=== PATIENT | female | born 1970 | race Caucasian/White ===

== ENCOUNTER 2021-03-02 19:56 | Inpatient (IN) | payer BC, OTHER ==
[2021-03-02 23:46] LABS: BASO % 2.7 % (0-2.0); EOS % 11.3 % (0-4.5); HEMATOCRIT 34.5 % (32.4-45.2); HEMOGLOBIN 11.5 GM/dL (10.7-15.3); LYMPH % 37.3 % (8-40); MCH 27.6 pg (25.7-33.7); MCHC 33.2 g/dl (32.0-36.0); MEAN CELL VOLUME 83.1 fl (80-96); MEAN PLT VOLUME 7.3 fl (7.5-11.1); MONO % 6.7 % (3.8-10.2); PLATELET COUNT 321 10^3/uL (134-434); RBC 4.15 M/mm3 (3.60-5.2); RDW 15.5 % (11.6-15.6); WHITE BLOOD COUNT 7.2 K/mm3 (4.0-10.0)
[2021-03-03 00:01] LABS: PROTHROMBIN TIME (PATIENT) 11.7 SEC (9.7-13.0)
[2021-03-03 00:03] LABS: ACTIVATED PTT 30.3 SECONDS (25.2-36.5)
[2021-03-03 00:12] LABS: CHLORIDE 110 mmol/L (98-107); SODIUM 142 mmol/L (136-145)
[2021-03-03] MEDS ORDERED: morphine CARPU-JECT 4 MG/1 ML DISP.SYRIN IVPUSH ONE ×2 (00:12→04:12)
[2021-03-03] MEDS ORDERED: ONDANSETRON 4 MG/2 ML VIAL IVPUSH ONE (00:12)
[2021-03-03 00:16] LABS: ALBUMIN 3.1 g/dl (3.4-5.0); ANION GAP 6 MMOL/L (8-16); BLOOD UREA NITROGEN 19.2 mg/dL (7-18); CALCIUM 8.4 mg/dL (8.5-10.1); CO2 26 mmol/L (21-32); GLUCOSE,RANDOM 88 mg/dL (74-106)
[2021-03-03 00:19] LABS: CREATININE 1.1 mg/dL (0.55-1.3); SGOT/AST 16 U/L (15-37); SGPT/ALT 22 U/L (13-61)
[2021-03-03 00:20] LABS: BILIRUBIN,TOTAL 0.2 mg/dL (0.2-1)
[2021-03-03 00:21] LABS: TOT PROT 6.5 g/dl (6.4-8.2)
[2021-03-03 00:22] LABS: ALK PHOS 113 U/L (45-117)
[2021-03-03] MEDS ORDERED: SODIUM CHLORIDE 1,000 ML IV STA (00:25)
[2021-03-03] MEDS ORDERED: morphine SULFATE 4 MG/ML VIAL ONE ×2 (01:05→05:27)
[2021-03-03] MEDS ORDERED: ONDANSETRON 4 MG/2 ML VIAL ONE ×2 (01:06→14:37)
[2021-03-03 02:57] LABS: EPI CELLS 8 /uL (0-25.1); HYALINE CASTS 11 /uL (0-3.1); PH,URINE 5.5 (5.0-8.0); URINE APPEARANCE TURBID; URINE BILIRUBIN 1+ (NEGATIVE); URINE COLOR RED; URINE GLUCOSE (UA) NEGATIVE (NEGATIVE); URINE KETONE NEGATIVE (NEGATIVE); URINE LEUK ESTERASE 2+ (NEGATIVE); URINE NITRITE POSITIVE (NEGATIVE); URINE PROTEIN 2+ (NEGATIVE); URINE UROBILINOGEN 0.2 mg/dL (0.2-1.0); URINE WBC 779 /uL (0-25.8)
[2021-03-03] MEDS ORDERED: IMIPENEM/CILASTATIN SODIUM 500 MG in SODIUM CHLORIDE 100 ML IVPB ONE (03:08)
[2021-03-03 03:47] LABS: URINE RBC 45132.6 /uL (0-23.9)
[2021-03-03] MEDS ORDERED: ACETAMINOPHEN 325 MG TABLET (FP) PO PRN (07:36)
[2021-03-03] MEDS: SODIUM CHLORIDE 1,000 ML IV SCH (08:00)
[2021-03-03] MEDS ORDERED: IMIPENEM/CILASTATIN SODIUM 500 MG in SODIUM CHLORIDE 100 ML IVPB SCH (09:00)
[2021-03-03] MEDS ORDERED: ACETAMINOPHEN 325 MG TABLET (FP) ONE (09:52)
[2021-03-03] MEDS: ONDANSETRON 4 MG/2 ML VIAL IVPUSH PRN ×2 (14:55→22:57)
[2021-03-03] MEDS ORDERED: DEXTROSE 5%-WATER 100 ML IVPB ONE (17:56)
[2021-03-03] MEDS ORDERED: MEROPENEM 1 GM VIAL (RESTRICTED TO ID) IVPB ONE (17:56)
[2021-03-03] MEDS: MEROPENEM 1 GM in DEXTROSE 5%-WATER 100 ML IVPB SCH (18:00)
[2021-03-03 18:57] VITALS: BMI 29.0
[2021-03-04] MEDS ORDERED: DEXTROSE 5%-WATER 100 ML IVPB ONE ×4 (02:36→18:10)
[2021-03-04] MEDS ORDERED: MEROPENEM 1 GM VIAL (RESTRICTED TO ID) IVPB ONE ×4 (02:36→18:10)
[2021-03-04] MEDS: MEROPENEM 1 GM in DEXTROSE 5%-WATER 100 ML IVPB SCH ×3 (02:43→18:15)
[2021-03-04] MEDS ORDERED: ACETAMINOPHEN 1000 MG/100 ML BAG IVPB PRN ×2 (05:28→14:33)
[2021-03-04] MEDS: SODIUM CHLORIDE 1,000 ML IV SCH ×2 (05:38→19:50)
[2021-03-04] MEDS: ONDANSETRON 4 MG/2 ML VIAL IVPUSH PRN ×3 (05:38→19:45)
[2021-03-04 09:49] LABS: BASO % 0.7 % (0-2.0); EOS % 9.2 % (0-4.5); HEMATOCRIT 37.4 % (32.4-45.2); HEMOGLOBIN 12.3 GM/dL (10.7-15.3); MCH 27.5 pg (25.7-33.7); MCHC 32.9 g/dl (32.0-36.0); MEAN CELL VOLUME 83.4 fl (80-96); MEAN PLT VOLUME 7.5 fl (7.5-11.1); MONO % 7.6 % (3.8-10.2); NEUT % 58.5 % (42.8-82.8); PLATELET COUNT 296 10^3/uL (134-434); RBC 4.48 M/mm3 (3.60-5.2); RDW 15.3 % (11.6-15.6); WHITE BLOOD COUNT 6.6 K/mm3 (4.0-10.0)
[2021-03-04 09:58] LABS: INR 1.11 (0.83-1.09)
[2021-03-04] MEDS ORDERED: ENOXAPARIN NA (PORCINE) 40 MG/0.4 ML DISP.SYRIN SQ SCH (10:00)
[2021-03-04 10:19] LABS: ALBUMIN 3.3 g/dl (3.4-5.0); BLOOD UREA NITROGEN 11.8 mg/dL (7-18); MAGNESIUM 2.1 mg/dL (1.8-2.4)
[2021-03-04 10:20] LABS: CALCIUM 9.1 mg/dL (8.5-10.1)
[2021-03-04 10:22] LABS: CREATININE 0.9 mg/dL (0.55-1.3); PHOSPHOROUS 4.3 mg/dL (2.5-4.9)
[2021-03-04 10:25] LABS: BILIRUBIN,TOTAL 0.6 mg/dL (0.2-1); TOT PROT 6.5 g/dl (6.4-8.2)
[2021-03-04] MEDS ORDERED: LACTATED RINGERS SOLUTION 1,000 ML/1,000 ML INFUS.BAG IV SCH (10:45)
[2021-03-04] MEDS ORDERED: oxyCODONE HCL 5 MG TABLET PO PRN ×2 (10:51→14:33)
[2021-03-04] MEDS ORDERED: KETOROLAC TROMETHAMINE 30 MG/1 ML VIAL IM SCH (11:00)
[2021-03-04] MEDS ORDERED: KETOROLAC TROMETHAMINE 30 MG/1 ML VIAL IVPUSH SCH (11:00)
[2021-03-04] MEDS ORDERED: PROPOFOL 20 ML ONE ×3 (12:20→12:21)
[2021-03-04] MEDS ORDERED: SUCCINYLCHOLINE CHLORIDE 200 MG/10 ML SYRINGE ONE (12:21)
[2021-03-04] MEDS ORDERED: MIDAZOLAM HCL 2 MG/2 ML SINGLE DOSE VIAL ONE ×2 (12:21→12:34)
[2021-03-04] MEDS ORDERED: ONDANSETRON 4 MG/2 ML VIAL IVPUSH PRN ×2 (12:36→14:33)
[2021-03-04] MEDS ORDERED: HYDROmorphone HCl 2 MG/ML VIAL IVPUSH PRN ×2 (12:37→14:33)
[2021-03-04] MEDS ORDERED: LACTATED RINGERS SOLUTION 1,000 ML IV SCH ×2 (12:45→14:33)
[2021-03-04] MEDS ORDERED: IOHEXOL 300 MG/ML INFUS..BTL IV ONE (14:00)
[2021-03-04] MEDS ORDERED: SODIUM CHLORIDE 1,000 ML IV SCH (14:33)
[2021-03-04] MEDS ORDERED: morphine SULFATE 4 MG/ML VIAL IM PRN (15:22)
[2021-03-04] MEDS: morphine SULFATE 4 MG/ML VIAL IVPUSH PRN ×2 (15:39→20:38)
[2021-03-04 16:44] LABS: EPI CELLS 14 /uL (0-25.1); HYALINE CASTS 0 /uL (0-3.1); PH,URINE 5.5 (5.0-8.0); URINE APPEARANCE CLOUDY; URINE BACTERIA 1 /uL (0-1359); URINE BILIRUBIN NEGATIVE (NEGATIVE); URINE COLOR RED; URINE GLUCOSE (UA) NEGATIVE (NEGATIVE); URINE KETONE TRACE (NEGATIVE); URINE LEUK ESTERASE 1+ (NEGATIVE); URINE NITRITE NEGATIVE (NEGATIVE); URINE PROTEIN 1+ (NEGATIVE); URINE RBC 18590 /uL (0-23.9); URINE UROBILINOGEN 0.2 mg/dL (0.2-1.0); URINE WBC 62 /uL (0-25.8)
[2021-03-04] MEDS: KETOROLAC TROMETHAMINE 30 MG/1 ML VIAL IVPUSH SCH ×2 (17:04→22:56)
[2021-03-04] MEDS: LACTATED RINGERS SOLUTION 1,000 ML IV SCH (18:14)
[2021-03-04] MEDS ORDERED: MELATONIN 5 MG TABLETS PO ONE (20:03)
[2021-03-05] MEDS ORDERED: MEROPENEM 1 GM VIAL (RESTRICTED TO ID) IVPB ONE ×2 (01:02→09:01)
[2021-03-05] MEDS ORDERED: DEXTROSE 5%-WATER 100 ML IVPB ONE ×2 (01:03→09:01)
[2021-03-05] MEDS: morphine SULFATE 4 MG/ML VIAL IVPUSH PRN ×4 (01:06→14:35)
[2021-03-05] MEDS: MEROPENEM 1 GM in DEXTROSE 5%-WATER 100 ML IVPB SCH ×2 (01:07→09:10)
[2021-03-05] MEDS: LACTATED RINGERS SOLUTION 1,000 ML IV SCH ×3 (02:20→19:00)
[2021-03-05] MEDS: KETOROLAC TROMETHAMINE 30 MG/1 ML VIAL IVPUSH SCH ×4 (05:19→22:08)
[2021-03-05 10:32] LABS: HEMATOCRIT 29.7 % (32.4-45.2); MCH 27.8 pg (25.7-33.7); MCHC 33.6 g/dl (32.0-36.0); MEAN CELL VOLUME 82.7 fl (80-96); MEAN PLT VOLUME 7.6 fl (7.5-11.1); PLATELET COUNT 277 10^3/uL (134-434); RDW 15.5 % (11.6-15.6); WHITE BLOOD COUNT 8.6 K/mm3 (4.0-10.0)
[2021-03-05 10:48] LABS: CALCIUM 8.2 mg/dL (8.5-10.1)
[2021-03-05 10:49] LABS: ALBUMIN 2.8 g/dl (3.4-5.0); BLOOD UREA NITROGEN 16.3 mg/dL (7-18)
[2021-03-05 10:53] LABS: BILIRUBIN,TOTAL 0.2 mg/dL (0.2-1); TOT PROT 5.3 g/dl (6.4-8.2)
[2021-03-05] MEDS: ONDANSETRON 4 MG/2 ML VIAL IVPUSH PRN ×2 (13:03→19:38)
[2021-03-05] MEDS: POLYETHYLENE GLYCOL (HEALTHYLAX) 3350 17 GM PACKET PO SCH ×2 (14:35→22:09)
[2021-03-05] MEDS: SIMETHICONE 80 MG TAB.CHEW (FP) PO PRN (14:35)
[2021-03-06] MEDS: ACETAMINOPHEN 325 MG TABLET (FP) PO PRN ×4 (00:22→23:29)
[2021-03-06] MEDS: LACTATED RINGERS SOLUTION 1,000 ML IV SCH (03:26)
[2021-03-06] MEDS: KETOROLAC TROMETHAMINE 30 MG/1 ML VIAL IVPUSH SCH (04:13)
[2021-03-06] MEDS: ONDANSETRON 4 MG/2 ML VIAL IVPUSH PRN ×5 (06:26→21:33)
[2021-03-06] MEDS ORDERED: IBUPROFEN 400 MG TABLET (FP) PO PRN ×2 (08:43→09:41)
[2021-03-06] MEDS: SIMETHICONE 80 MG TAB.CHEW (FP) PO PRN ×3 (09:56→17:23)
[2021-03-06] MEDS: POLYETHYLENE GLYCOL (HEALTHYLAX) 3350 17 GM PACKET PO SCH ×3 (09:56→21:33)
[2021-03-06] MEDS: IBUPROFEN 200 MG TABLET PO PRN (14:15)
[2021-03-06] MEDS: BISACODYL 10 MG SUPP.RECT PR PRN (14:15)
[2021-03-06] MEDS: oxyCODONE HCL 5 MG TABLET PO PRN ×2 (17:24→23:28)
[2021-03-06] MEDS: Methylnaltrexone Bromide 12 MG/0.6 ML KIT SQ SCH (18:36)
[2021-03-06 20:32] LABS: HEMATOCRIT 33.7 % (32.4-45.2); HEMOGLOBIN 11.4 GM/dL (10.7-15.3); MCHC 33.6 g/dl (32.0-36.0); MEAN CELL VOLUME 83.3 fl (80-96); MEAN PLT VOLUME 7.8 fl (7.5-11.1); PLATELET COUNT 271 10^3/uL (134-434); RBC 4.05 M/mm3 (3.60-5.2); RDW 15.4 % (11.6-15.6); WHITE BLOOD COUNT 7.3 K/mm3 (4.0-10.0)
[2021-03-06 20:54] LABS: BLOOD UREA NITROGEN 12.4 mg/dL (7-18); CALCIUM 8.4 mg/dL (8.5-10.1)
[2021-03-06 20:55] LABS: ALBUMIN 3.3 g/dl (3.4-5.0)
[2021-03-06 20:59] LABS: TOT PROT 6.3 g/dl (6.4-8.2)
[2021-03-06 21:00] LABS: BILIRUBIN,TOTAL 0.8 mg/dL (0.2-1)
[2021-03-07] MEDS: ONDANSETRON 4 MG/2 ML VIAL IVPUSH PRN ×2 (04:10→09:26)
[2021-03-07] MEDS: POLYETHYLENE GLYCOL (HEALTHYLAX) 3350 17 GM PACKET PO SCH ×3 (05:59→21:02)
[2021-03-07] MEDS: oxyCODONE HCL 5 MG TABLET PO PRN ×2 (06:00→21:01)
[2021-03-07] MEDS: ACETAMINOPHEN 325 MG TABLET (FP) PO PRN (06:01)
[2021-03-07] MEDS ORDERED: PT OWN MED DRAWER 7, Y5N ONE ×2 (09:14→12:07)
[2021-03-07] MEDS: SIMETHICONE 80 MG TAB.CHEW (FP) PO PRN (09:53)
[2021-03-07] MEDS: IBUPROFEN 200 MG TABLET PO PRN (09:57)
[2021-03-07] MEDS: Methylnaltrexone Bromide 12 MG/0.6 ML KIT SQ SCH (12:20)
[2021-03-07] MEDS ORDERED: methylPREDNISolone NA SUCC 125 MG/2 ML VIAL IVPUSH ONE (12:42)
[2021-03-08] MEDS: SIMETHICONE 80 MG TAB.CHEW (FP) PO PRN ×2 (02:00→14:18)
[2021-03-08] MEDS: POLYETHYLENE GLYCOL (HEALTHYLAX) 3350 17 GM PACKET PO SCH ×2 (07:00→13:34)
[2021-03-08] MEDS: ACETAMINOPHEN 325 MG TABLET (FP) PO PRN (07:06)
[2021-03-08 09:06] LABS: BASO % 0.3 % (0-2.0); EOS % 1.6 % (0-4.5); HEMATOCRIT 37.2 % (32.4-45.2); HEMOGLOBIN 12.3 GM/dL (10.7-15.3); LYMPH % 16.3 % (8-40); MCH 27.5 pg (25.7-33.7); MEAN CELL VOLUME 83.5 fl (80-96); MEAN PLT VOLUME 7.8 fl (7.5-11.1); MONO % 4.4 % (3.8-10.2); NEUT % 77.4 % (42.8-82.8); PLATELET COUNT 346 10^3/uL (134-434); RBC 4.46 M/mm3 (3.60-5.2); RDW 15.2 % (11.6-15.6); WHITE BLOOD COUNT 13.6 K/mm3 (4.0-10.0)
[2021-03-08 09:54] LABS: BLOOD UREA NITROGEN 20.7 mg/dL (7-18); CALCIUM 9.5 mg/dL (8.5-10.1)
[2021-03-08 09:57] LABS: CREATININE 1.1 mg/dL (0.55-1.3)
[2021-03-08] MEDS: IBUPROFEN 200 MG TABLET PO PRN (10:46)
[2021-03-08] MEDS ORDERED: LACTOBACILLUS ACIDOPHILUS 1 TABLET PO SCH (11:15)
[2021-03-08] MEDS: BISACODYL 10 MG SUPP.RECT PR PRN (11:16)
[2021-03-08 14:51] VITALS: BP 115/57; PULSE 72; TEMP 98.5
[2021-03-18 08:13] LABS: CA OXALATE MONOHYDR. 100%; SIZE 2X2; WEIGHT 27MG
== END 2021-03-08 18:43 | disposition home or self-care (01) | DRG 694 ==
LOC: JER 19:56 → JERBED 03-03 00:25 → J7W 03-03 17:47
PROVIDERS: ADMIT Internal Medicine; ATTEND Internal Medicine
PROC: 0T784DZ Dilation of Bilateral Ureters with Intraluminal Device, Percutaneous Endoscopic Approach (ICD-10-PCS; 2021-03-04)
PROC: BT14ZZZ Fluoroscopy of Kidneys, Ureters and Bladder (ICD-10-PCS; 2021-03-04)
PROC: 0TC78ZZ Extirpation of Matter from Left Ureter, Via Natural or Artificial Opening Endoscopic (ICD-10-PCS; principal; 2021-03-04 13:30)
PROC: 0TC68ZZ Extirpation of Matter from Right Ureter, Via Natural or Artificial Opening Endoscopic (ICD-10-PCS; 2021-03-04 13:30)
DX: N13.2 Hydronephrosis with renal and ureteral calculous obstruction (principal); K59.00 Constipation, unspecified; Z98.84 Bariatric surgery status; E66.9 Obesity, unspecified; Z68.29 Body mass index [BMI] 29.0-29.9, adult
CPT/HCPCS: 36415; 74176-TC; 74177-TC; 76000-TC-FY; 76775-TC; 80048; 80053; 81003; 82360; 82550; 83735; 84100; 84484; 85025; 85027; 85610; 85730; 86850; 86900; 86901; 87086; 88300-TC; 93005; 93010; 94010; 94760; 99285-25; C9803-CS; U0003; U0005

== ENCOUNTER 2021-05-19 13:39 | Observation (INO) | payer OTHER ==
[2021-05-19 13:48] VITALS: BMI 30.5
[2021-05-19 15:28] LABS: BASO % 1.1 % (0-2.0); EOS % 3.8 % (0-4.5); HEMATOCRIT 33.7 % (32.4-45.2); HEMOGLOBIN 11.3 GM/dL (10.7-15.3); LYMPH % 29.5 % (8-40); MCH 27.3 pg (25.7-33.7); MCHC 33.3 g/dl (32.0-36.0); MEAN PLT VOLUME 6.7 fl (7.5-11.1); MONO % 5.8 % (3.8-10.2); NEUT % 59.8 % (42.8-82.8); PLATELET COUNT 382 10^3/uL (134-434); RBC 4.12 M/mm3 (3.60-5.2); RDW 14.1 % (11.6-15.6); WHITE BLOOD COUNT 7.3 K/mm3 (4.0-10.0)
[2021-05-19 15:35] LABS: INR 0.95 (0.83-1.09); PROTHROMBIN TIME (PATIENT) 10.9 SEC (9.7-13.0)
[2021-05-19 15:37] LABS: ACTIVATED PTT 28.6 SECONDS (25.2-36.5)
[2021-05-19 15:50] LABS: ALBUMIN 3.7 g/dl (3.4-5.0); BLOOD UREA NITROGEN 13.7 mg/dL (7-18); MAGNESIUM 2.2 mg/dL (1.8-2.4)
[2021-05-19 15:54] LABS: BILIRUBIN,TOTAL 0.2 mg/dL (0.2-1); TOT PROT 7.4 g/dl (6.4-8.2)
[2021-05-19] MEDS ORDERED: ACETAMINOPHEN 1000 MG/100 ML BAG IVPB ONE (16:00)
[2021-05-19] MEDS ORDERED: ACETAMINOPHEN INJECTION 100 ML IVPB ONE (16:01)
[2021-05-19] MEDS ORDERED: SODIUM CHLORIDE 0.9% 1000 ML INFUS.BAG IV ONE (16:12)
[2021-05-19 18:24] LABS: EPI CELLS 14 /uL (0-25.1); HYALINE CASTS 0 /uL (0-3.1); URINE APPEARANCE CLEAR; URINE BACTERIA 113 /uL (0-1359); URINE BILIRUBIN NEGATIVE (NEGATIVE); URINE COLOR YELLOW; URINE GLUCOSE (UA) NEGATIVE (NEGATIVE); URINE KETONE NEGATIVE (NEGATIVE); URINE LEUK ESTERASE 1+ (NEGATIVE); URINE NITRITE NEGATIVE (NEGATIVE); URINE PROTEIN NEGATIVE (NEGATIVE); URINE RBC 6 /uL (0-23.9); URINE UROBILINOGEN 0.2 mg/dL (0.2-1.0); URINE WBC 44 /uL (0-25.8)
[2021-05-19] MEDS ORDERED: SODIUM CHLORIDE 1,000 ML IV SCH (19:00)
[2021-05-19] MEDS ORDERED: MECLIZINE HCL 25 MG TABLET (FP) ONE (19:55)
[2021-05-19] MEDS: MECLIZINE HCL 25 MG TABLET (FP) PO SCH (20:15)
[2021-05-20] MEDS ORDERED: ACETAMINOPHEN 1000 MG/100 ML BAG IVPB ONE (00:28)
[2021-05-20] MEDS: MECLIZINE HCL 25 MG TABLET (FP) PO SCH ×4 (00:38→18:20)
[2021-05-20 07:05] LABS: BASO % 1.1 % (0-2.0); EOS % 5.4 % (0-4.5); HEMATOCRIT 28.5 % (32.4-45.2); HEMOGLOBIN 9.6 GM/dL (10.7-15.3); LYMPH % 36.7 % (8-40); MCH 27.5 pg (25.7-33.7); MCHC 33.6 g/dl (32.0-36.0); MONO % 8.3 % (3.8-10.2); NEUT % 48.5 % (42.8-82.8); PLATELET COUNT 311 10^3/uL (134-434); RBC 3.47 M/mm3 (3.60-5.2); RDW 13.7 % (11.6-15.6); WHITE BLOOD COUNT 5.3 K/mm3 (4.0-10.0)
[2021-05-20 07:21] LABS: BLOOD UREA NITROGEN 11.8 mg/dL (7-18)
[2021-05-20 07:24] LABS: CREATININE 0.8 mg/dL (0.55-1.3); PHOSPHOROUS 4.3 mg/dL (2.5-4.9)
[2021-05-20 07:26] LABS: BILIRUBIN,TOTAL 0.4 mg/dL (0.2-1); TOT PROT 5.9 g/dl (6.4-8.2)
[2021-05-20 07:54] LABS: ALBUMIN 2.8 g/dl (3.4-5.0)
[2021-05-20] MEDS ORDERED: FERRIC CARBOXYMALTOSE 750 MG in SODIUM CHLORIDE 250 ML IVPB ONE (08:16)
[2021-05-20] MEDS ORDERED: ENOXAPARIN NA (PORCINE) 40 MG/0.4 ML DISP.SYRIN SQ SCH (10:00)
[2021-05-20] MEDS ORDERED: IRON SUCROSE INJECTION 200 MG in SODIUM CHLORIDE 90 ML IVPB ONE (11:00)
[2021-05-20] MEDS: ACETAMINOPHEN 325 MG TABLET (FP) PO PRN ×2 (12:59→20:14)
[2021-05-20] MEDS: SODIUM CHLORIDE 1,000 ML IV SCH (16:52)
[2021-05-20] MEDS ORDERED: VALPROATE SODIUM 500 MG/5 ML VIAL IVPB ONE ×2 (21:06→22:45)
[2021-05-20] MEDS ORDERED: PRAMIPEXOLE DIHYDROCHLORIDE 0.25 MG TABLET PO SCH (22:00)
[2021-05-21] MEDS: MECLIZINE HCL 25 MG TABLET (FP) PO SCH ×4 (00:17→14:04)
[2021-05-21] MEDS: DIVALPROEX NA *ER* EXTEND REL 500 MG TABLET.SA (FP) PO SCH ×2 (06:04→09:49)
[2021-05-21] MEDS: SODIUM CHLORIDE 1,000 ML IV SCH (06:05)
[2021-05-21] MEDS: ACETAMINOPHEN 325 MG TABLET (FP) PO PRN (08:23)
[2021-05-21 08:45] LABS: HEMOGLOBIN 10.1 GM/dL (10.7-15.3); MCH 27.7 pg (25.7-33.7); MCHC 33.7 g/dl (32.0-36.0); MEAN CELL VOLUME 82.3 fl (80-96); MEAN PLT VOLUME 7.1 fl (7.5-11.1); PLATELET COUNT 335 10^3/uL (134-434); RBC 3.65 M/mm3 (3.60-5.2); RDW 13.9 % (11.6-15.6); WHITE BLOOD COUNT 5.5 K/mm3 (4.0-10.0)
[2021-05-21] MEDS ORDERED: diphenhydrAMINE HCL 25 MG CAPSULE (FP) PO ONE (09:00)
[2021-05-21 09:01] LABS: CALCIUM 8.6 mg/dL (8.5-10.1)
[2021-05-21 09:02] LABS: ALBUMIN 3.1 g/dl (3.4-5.0); BLOOD UREA NITROGEN 11.1 mg/dL (7-18)
[2021-05-21 09:04] LABS: BILIRUBIN,TOTAL 0.2 mg/dL (0.2-1); CREATININE 0.8 mg/dL (0.55-1.3)
[2021-05-21 09:06] LABS: TOT PROT 6.3 g/dl (6.4-8.2)
[2021-05-21] MEDS ORDERED: FERROUS SO4 325 MG TABLET (FP) PO SCH (10:00)
[2021-05-21] MEDS ORDERED: ENOXAPARIN NA (PORCINE) 40 MG/0.4 ML DISP.SYRIN SQ SCH (10:00)
[2021-05-21 14:26] VITALS: BP 120/60; PULSE 72; TEMP 98
== END 2021-05-21 15:30 | disposition home or self-care (01) ==
LOC: JER 13:39 → JERBED 18:01 → J4W 23:04 → J8W 05-20 16:09
PROVIDERS: ADMIT Internal Medicine; ATTEND Internal Medicine
PROC: 3E033NZ Introduction of Analgesics, Hypnotics, Sedatives into Peripheral Vein, Percutaneous Approach (ICD-10-PCS; principal; 2021-05-19)
PROC: 3E023GC Introduction of Other Therapeutic Substance into Muscle, Percutaneous Approach (ICD-10-PCS; 2021-05-19)
PROC: 3E033GC Introduction of Other Therapeutic Substance into Peripheral Vein, Percutaneous Approach (ICD-10-PCS; 2021-05-19)
PROC: 3E0337Z Introduction of Electrolytic and Water Balance Substance into Peripheral Vein, Percutaneous Approach (ICD-10-PCS; 2021-05-19)
DX: R55 Syncope and collapse (principal); E66.8 Other obesity; Z68.30 Body mass index [BMI] 30.0-30.9, adult; Z98.84 Bariatric surgery status; F32.9 Major depressive disorder, single episode, unspecified; F43.10 Post-traumatic stress disorder, unspecified; N20.0 Calculus of kidney; G56.00 Carpal tunnel syndrome, unspecified upper limb; Z88.8 Allergy status to other drugs, medicaments and biological substances; R26.2 Difficulty in walking, not elsewhere classified; Z29.9 Encounter for prophylactic measures, unspecified; Z91.013 Allergy to seafood; Z88.0 Allergy status to penicillin; Z88.6 Allergy status to analgesic agent
CPT/HCPCS: 36415; 70450-TC; 71045-TC-FY; 80053; 80061; 81003; 82728; 83036; 83540; 83550; 83735; 84100; 84439; 84443; 84480; 84484; 85025; 85027; 85610; 85730; 86618; 93005; 93010; 93880-TC; 96361; 96365; 96372; 96375; 96376; 97116-GP; 97162-GP; 99285-25; C9803-CS; G0378; J1756; U0003; U0005

== ENCOUNTER 2021-10-28 01:59 | Emergency (ER) | payer BC, OTHER ==
[2021-10-28 02:55] VITALS: BP 112/68; PULSE 77; RESP 17; TEMP 98.5; BMI 33.5
[2021-10-28 04:16] LABS: EPI CELLS 11 /uL (0-25.1); HYALINE CASTS 1 /uL (0-3.1); URINE APPEARANCE CLEAR; URINE BACTERIA 19 /uL (0-1359); URINE BILIRUBIN NEGATIVE (NEGATIVE); URINE COLOR YELLOW; URINE GLUCOSE (UA) NEGATIVE (NEGATIVE); URINE KETONE NEGATIVE (NEGATIVE); URINE LEUK ESTERASE 1+ (NEGATIVE); URINE NITRITE NEGATIVE (NEGATIVE); URINE PROTEIN NEGATIVE (NEGATIVE); URINE RBC 15 /uL (0-23.9); URINE WBC 10 /uL (0-25.8)
[2021-10-28 04:33] LABS: BASO % 1.3 % (0-2.0); EOS % 6.4 % (0-4.5); HEMATOCRIT 31.4 % (32.4-45.2); HEMOGLOBIN 10.6 GM/dL (10.7-15.3); LYMPH % 42.6 % (8-40); MCHC 33.7 g/dl (32.0-36.0); MEAN CELL VOLUME 80.3 fl (80-96); MEAN PLT VOLUME 7.5 fl (7.5-11.1); MONO % 13.2 % (3.8-10.2); NEUT % 36.5 % (42.8-82.8); PLATELET COUNT 288 10^3/uL (134-434); RBC 3.91 M/mm3 (3.60-5.2); RDW 15.6 % (11.6-15.6); WHITE BLOOD COUNT 4.2 K/mm3 (4.0-10.0)
[2021-10-28 04:51] LABS: CALCIUM 8.5 mg/dL (8.5-10.1)
[2021-10-28 04:52] LABS: ALBUMIN 3.2 g/dl (3.4-5.0); BLOOD UREA NITROGEN 15.9 mg/dL (7-18)
[2021-10-28 04:55] LABS: PHOSPHOROUS 3.7 mg/dL (2.5-4.9)
[2021-10-28 04:56] LABS: BILIRUBIN,TOTAL 0.2 mg/dL (0.2-1); TOT PROT 6.1 g/dl (6.4-8.2)
[2021-10-28 05:01] LABS: N-TERMINAL BNP 25.4 pg/ml (5-125)
[2021-10-28] MEDS ORDERED: Methylnaltrexone Bromide 12 MG/0.6 ML KIT SQ ONE (05:58)
== END 2021-10-28 07:07 | disposition home or self-care (01) ==
LOC: JER 01:59
DX: R33.9 Retention of urine, unspecified (principal)
CPT/HCPCS: 36415; 71045-TC-FY; 74176-TC; 80053; 81003; 82570; 83735; 83880; 83935; 84100; 84133; 84300; 84484; 84540; 84703; 85025; 87086; 93005; 93010; 99285-25; C9803-CS; U0003; U0005